=== PATIENT | male | born 1985 | race African-American/Black ===

== ENCOUNTER 2016-06-03 01:51 | Emergency (ER) | payer OTHER ==
[2016-06-03 02:58] VITALS: BP 136/75; PULSE 75; TEMP 98.6; BMI 24.3
[2016-06-03] MEDS ORDERED: IBUPROFEN 600 MG TABLET (FP) PO STA (03:33)
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
[2016-06-03] MEDS ORDERED: IBUPROFEN 600 MG TABLET (FP) PO ONE (03:41)
== END 2016-06-03 03:45 | disposition home or self-care (01) ==
LOC: JER 01:51
DX: J70.5 Respiratory conditions due to smoke inhalation (principal); S46.912A Strain of unspecified muscle, fascia and tendon at shoulder and upper arm level, left arm, initial encounter; X50.0XXA Overexertion from strenuous movement or load, initial encounter; X02.1XXA Exposure to smoke in controlled fire in building or structure, initial encounter; Y92.89 Other specified places as the place of occurrence of the external cause; Y99.0 Civilian activity done for income or pay
CPT/HCPCS: 99281-25

== ENCOUNTER 2016-07-24 21:16 | Emergency (ER) | payer OTHER ==
[2016-07-24 21:26] VITALS: BP 126/76; PULSE 85; TEMP 98; BMI 27.3
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
--- NOTE | 2016-07-24 22:15 | PDOC ---
*Physical Exam - Vital Signs Last Vital Signs Temp Pulse Resp BP Pulse Ox 98.0 F 85 18 126/76 100 07/24/16 21:22 07/24/16 21:22 07/24/16 21:22 07/24/16 21:22 07/24/16 21:22 ED Treatment Course - RADIOLOGY Radiology Studies Ordered: Category Date Time Status FINGER(S) LEFT [RAD] Stat Radiology 07/24/16 21:39 Taken *DC/Admit/Observation/Transfer Diagnosis at time of Disposition: Strain of thumb, left Qualifiers: Encounter type: initial encounter Qualified Code(s): S66.912A - Strain of unspecified muscle, fascia and tendon at wrist and hand level, left hand, initial encounter - Discharge Dispostion Disposition: HOME Condition at time of disposition: Stable - Referrals Referrals: Codey García MD [Staff Physician] - Hamilton Millan MD [Staff Physician] - - Patient Instructions Additional Instructions: PLEASE SEE DR MILLAN OR STACI EARLY NEXT WEEK IF NO BETTER
== END 2016-07-24 22:18 | disposition home or self-care (01) ==
LOC: JERFT 21:16
DX: S66.912A Strain of unspecified muscle, fascia and tendon at wrist and hand level, left hand, initial encounter (principal); X58.XXXA Exposure to other specified factors, initial encounter; Y93.89 Activity, other specified; Y92.9 Unspecified place or not applicable; Y99.0 Civilian activity done for income or pay
CPT/HCPCS: 73140-TC-LT; 99281-25

== ENCOUNTER 2016-11-16 09:50 | Emergency (ER) | payer OTHER ==
[2016-11-16 09:59] VITALS: TEMP 97.7; BMI 28.0
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
[2016-11-16] MEDS ORDERED: IBUPROFEN 400 MG TABLET (FP) PO ONE ×2 (10:31→10:39)
[2016-11-16 12:20] VITALS: BP 122/70; PULSE 78
== END 2016-11-16 12:21 | disposition home or self-care (01) ==
LOC: JER 09:50
DX: S00.93XA Contusion of unspecified part of head, initial encounter (principal); S30.0XXA Contusion of lower back and pelvis, initial encounter; W17.89XA Other fall from one level to another, initial encounter; Y93.89 Activity, other specified; Y92.89 Other specified places as the place of occurrence of the external cause; Y99.0 Civilian activity done for income or pay
CPT/HCPCS: 72100-TC; 99282-25

== ENCOUNTER 2017-06-06 05:12 | Emergency (ER) | payer BC, OTHER ==
--- NOTE | 2017-06-06 05:28 | PDOC ---
Attending Attestation - ED Attending Attestation I have performed the following: I have examined & evaluated the patient
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
[2017-06-06] MEDS ORDERED: SODIUM CHLORIDE 0.9% 500 ML INFUS.BAG IV ONE (05:58)
[2017-06-06 06:08] VITALS: BMI 26.5
[2017-06-06 06:09] LABS: BASO % 0.5 % (0-2.0); EOS % 0.2 % (0-4.5); HEMATOCRIT 44.4 % (35.4-49); HEMOGLOBIN 14.8 GM/dL (11.7-16.9); LYMPH % 14.8 % (8-40); MCH 31.7 pg (25.7-33.7); MCHC 33.3 g/dl (32.0-35.9); MEAN CELL VOLUME 95.2 fl (80-96); MEAN PLT VOLUME 10.3 fl (7.5-11.1); MONO % 6.4 % (3.8-10.2); NEUT % 78.1 % (42.8-82.8); PLATELET COUNT 272 K/MM3 (134-434); RBC 4.67 M/mm3 (4.00-5.60); RDW 12.4 % (11.9-15.9); WHITE BLOOD COUNT 10.1 K/mm3 (4.0-10.0)
[2017-06-06 06:19] LABS: INR 1.05 (0.82-1.09); PROTHROMBIN TIME (PATIENT) 11.9 SEC (9.98-11.88)
[2017-06-06 06:23] LABS: URINE APPEARANCE CLEAR; URINE BILIRUBIN NEGATIVE (NEGATIVE); URINE BLOOD 2+ (NEGATIVE); URINE COLOR YELLOW; URINE GLUCOSE (UA) NEGATIVE (NEGATIVE); URINE KETONE NEGATIVE (NEGATIVE); URINE LEUK ESTERASE NEGATIVE (NEGATIVE); URINE NITRITE NEGATIVE (NEGATIVE); URINE PROTEIN NEGATIVE (NEGATIVE); URINE UROBILINOGEN NEGATIVE mg/dL (0.2-1.0)
[2017-06-06] MEDS ORDERED: KETOROLAC TROMETHAMINE 30 MG/1 ML VIAL IVPUSH ONE (06:29)
[2017-06-06] MEDS ORDERED: TAMSULOSIN HCL 0.4 MG CAP.ER.24H (FP) PO ONE (06:29)
[2017-06-06 06:35] LABS: EPI CELLS RARE /HPF (FEW); URINE HYALINE CAST 20 /lpf; URINE MUCUS RARE
[2017-06-06] MEDS ORDERED: TAMSULOSIN HCL 0.4 MG CAP.ER.24H (FP) ONE (06:44)
[2017-06-06] MEDS ORDERED: KETOROLAC TROMETHAMINE 30 MG/1 ML VIAL ONE (06:44)
[2017-06-06 06:54] LABS: ALBUMIN 4.1 g/dl (3.4-5.0); ANION GAP 8 (8-16); BILIRUBIN,TOTAL 0.4 mg/dL (0.2-1.0); BLOOD UREA NITROGEN 16 mg/dL (7-18); CALCIUM 8.9 mg/dL (8.5-10.1); CHLORIDE 104 mmol/L (98-107); CO2 29 mmol/L (21-32); CREATININE 1.2 mg/dL (0.7-1.3); GLUCOSE,RANDOM 107 mg/dL (74-106); POTASSIUM 4.3 mmol/L (3.5-5.1); SGOT/AST 26 U/L (15-37); SGPT/ALT 55 U/L (12-78); SODIUM 141 mmol/L (136-145); TOT PROT 7.7 g/dl (6.4-8.2)
[2017-06-06 06:55] LABS: ALK PHOS 99 U/L (45-117)
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
[2017-06-06 08:14] VITALS: BP 118/78; PULSE 77; TEMP 98
== END 2017-06-06 08:05 | disposition home or self-care (01) ==
LOC: JER 05:12
PROC: 3E0333Z Introduction of Anti-inflammatory into Peripheral Vein, Percutaneous Approach (ICD-10-PCS; principal; 2017-06-06)
DX: N20.0 Calculus of kidney (principal)
CPT/HCPCS: 36415; 74176; 80053; 81003; 81015; 84153; 85025; 85610; 87086; 99283-25

== ENCOUNTER 2018-05-01 15:05 | Emergency (ER) | payer OTHER ==
--- NOTE | 2018-05-01 15:08 | PDOC ---
Rapid Medical Evaluation Time Seen by Provider: 05/01/18 15:07 Medical Evaluation: Allergies Allergy/AdvReac Type Severity Reaction Status Date / Time No Known Allergies Allergy Verified 06/06/17 05:13 05/01/18 15:07 I have performed a brief in-person evaluation of this patient. 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 No trauma Pertinent physical exam findings:Unremarkable I have ordered the following:nothing The patient will proceed to the ED for further evaluation Discharge Disposition - Diagnosis Shoulder strain Qualifiers: Encounter type: initial encounter Laterality: left Qualified Code(s): S46.912A - Strain of unspecified muscle, fascia and tendon at shoulder and upper arm level, left arm, initial encounter - Referrals - Patient Instructions - Post Discharge Activity
[2018-05-01 15:13] VITALS: BP 125/62; PULSE 96; TEMP 98.7; BMI 28.3
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
== END 2018-05-01 15:39 | disposition home or self-care (01) ==
LOC: JERFT 15:05
DX: S46.912A Strain of unspecified muscle, fascia and tendon at shoulder and upper arm level, left arm, initial encounter (principal); X58.XXXA Exposure to other specified factors, initial encounter; Y93.89 Activity, other specified; Y92.89 Other specified places as the place of occurrence of the external cause; Y99.0 Civilian activity done for income or pay
CPT/HCPCS: 99281-25

== ENCOUNTER 2019-12-27 11:16 | Emergency (ER) | payer BC, OTHER ==
[2019-12-27 11:27] VITALS: BP 135/78; PULSE 76; TEMP 97.9; BMI 28.3
[2019-12-27] MEDS ORDERED: IBUPROFEN 600 MG TABLET (FP) PO ONE ×2 (11:54→11:57)
--- NOTE | 2019-12-27 12:02 | PDOC ---
History of Present Illness - General Chief Complaint: Injury Stated Complaint: LT. FOOT INJURY Time Seen by Provider: 12/27/19 11:37 History Source: Patient Exam Limitations: No Limitations Past History - Travel History Traveled outside of the country in the last 30 days: No Close contact w/someone who was outside of country & ill: No - Medical History Allergies/Adverse Reactions: Allergies Allergy/AdvReac Type Severity Reaction Status Date / Time No Known Allergies Allergy Verified 12/27/19 11:27 Home Medications: Ambulatory Orders NK [No Known Home Medication] 11/18/14 COPD: No - Immunization History Immunization Up to Date: No - Psycho-Social/Smoking History Smoking History: Never smoked Have you smoked in the past 12 months: No Information on smoking cessation initiated: No - Substance Abuse Hx (Audit-C & DAST Scrn) How often the patient has a drink containing alcohol: 2-4 times / month Number of drinks the patient has on a typical day: 1 or 2 How often the patient has six or more drinks on one occasion: Never Score: In Men: 4 or > Positive; In Women: 3 or > Positive: 2 Screen Result (Pos requires Nsg. Audit-10AR): Negative In the last yr the pt used illegal drug/Rx for NonMed reason: No Score: Yes response is considered Positive: 0 Screen Result (Positive result requires Nsg. DAST-10): Negative Review of Systems - Review of Systems Able to Perform ROS?: Yes Comments:: 12/27/19 11:57 CONSTITUTIONAL: Absent: fever, chills, diaphoresis, generalized weakness, malaise, loss of appetite MUSCULOSKELETAL: Present: L ankle pain Absent: myalgia, arthralgia, joint swelling SKIN: Absent: rash, itching, pallor NEUROLOGIC: Absent: headache, focal weakness or paresthesias, dizziness, unsteady gait, seizure, mental status changes, bladder or bowel incontinence PSYCHIATRIC: Absent: anxiety, depression, suicidal or homicidal ideation, hallucinations. Is the patient limited Romansh proficient: No *Physical Exam - Vital Signs Last Vital Signs Temp Pulse Resp BP Pulse Ox 97.9 F 76 17 135/78 100 12/27/19 11:25 12/27/19 11:25 12/27/19 11:25 12/27/19 11:25 12/27/19 11:25 - Physical Exam 12/27/19 12:02 GENERAL: The patient is awake, alert, and fully oriented, in no acute distress. HEAD: Normal with no signs of trauma. EYES: Pupils equal, round and reactive to light, extraocular movements intact, sclera anicteric, conjunctiva clear. EXTREMITIES: TTP of the anterior lateral aspect of the L ankle with associated swelling. Normal range of motion, no edema. NEUROLOGICAL: Normal speech, normal gait. PSYCH: Normal mood, normal affect. SKIN: Warm, Dry, normal turgor, no rashes or lesions noted. ED Treatment Course - RADIOLOGY Radiology Studies Ordered: Category Date Time Status ANKLE & FOOT-LEFT* [RAD] Stat Radiology 12/27/19 11:54 Ordered - Medications Given in the ED: ED Medications Discontinued Medications Generic Name Dose Route Start Last Admin Trade Name Freq PRN Reason Stop Dose Admin Ibuprofen 600 mg 12/27/19 11:54 12/27/19 11:56 Motrin - PO 12/27/19 11:55 600 mg ONCE ONE Administration Medical Decision Making - Medical Decision Making 12/27/19 13:03 The patient is a 34-year-old male with no past medical history who presents to the ER with left ankle pain for 2 weeks. He states he was playing basketball at work when he rolled his ankle. He states that since then he is still had pain and swelling to the left ankle and foot so he came to the ER for evaluation. De nies numbness and tingling weakness the affected extremity. A/P: Left ankle sprain On exam patient has tenderness to palpation of the left anterior lateral aspect of the ankle. X-ray reveals no fractures including no Granda fractures. Likely an ankle sprain. Will treat symptomatically. We will have patient be cleared back to patient health before returning to work. Patient is [facility] [place] [facility] follow-up given. I discussed the physical exam findings, ancillary test results and final diagnoses with the patient. I answered all of the patient's questions. The patient was satisfied with the care received and felt comfortable with the discharge plan and treatment plan. The Patient agrees to follow up with the primary care physician/specialist within 24-72 hours. Return precautions were given. Discharge - Discharge Information Problems reviewed: Yes Clinical Impression/Diagnosis: Left ankle strain Qualifiers: Encounter type: initial encounter Qualified Code(s): S96.912A - Strain of unspecified muscle and tendon at ankle and foot level, left foot, initial encounter Condition: Stable Disposition: HOME - Admission No - Follow up/Referral Referrals: Antwan Romo MD [Staff Physician] - - Patient Discharge Instructions Patient Printed Discharge Instructions: DI for Ankle Sprain Additional Instructions: You sprained your ankle. Your x-ray was negative for broken bones. Please keep your ankle elevated while at rest above the level of your heart to reduce swelling. You may take Motrin 800 mg every 8 hours to help reduce pain and swelling. Please ice the area for 20 minute intervals at least 5 times a day to help reduce swelling. Please wear the Davon wrap. Please follow-up with orthopedics in 1 week if your symptoms are not improving. Return to the emergency department if you have worsening pain, or unable to walk, numbness and tingling of the foot, or had any changes in her symptoms. - Post Discharge Activity Work/Back to School Note: Back to Work
== END 2019-12-27 14:00 | disposition home or self-care (01) ==
LOC: JERFT 11:16
DX: S96.912A Strain of unspecified muscle and tendon at ankle and foot level, left foot, initial encounter (principal)
CPT/HCPCS: 73610-TC-LT-FY; 73630-TC-LT; 99283-25